=== PATIENT | female | born 1980 | race Caucasian/White ===

== ENCOUNTER 2017-09-05 08:56 | Emergency (ER) | payer BC ==
[2017-09-05 09:16] VITALS: BP 122/65
[2017-09-05] MEDS ORDERED: Al Hydrox/Mg Hydrox/Simet LIQ* 30 ML UDC PO ONE (09:20)
[2017-09-05] MEDS ORDERED: Ondansetron ODT TAB* 4 MG PO ONE (10:11)
--- NOTE | 2017-09-05 10:29 | UC ---
General HPI - HPI Summary HPI Summary: Patient c/o vomiting since yesterday without any apparent triggers, states after several episodes she started having chest pain starting from midline and radiating to right side and arm, worsens when she extends her arm. Denies palpitations, SOB, dizziness. States she suffers from asthma and anxiety and took her medications because she did not understand the reason for the pain and was afraid she had an exacerbation of those. Stools have been normal in color/ consistency - History of Current Complaint Chief Complaint: UCChestPain Stated Complaint: CHEST PAIN, AND VOMITING Time Seen by Provider: 09/05/17 09:03 Hx Obtained From: Patient Hx Last Menstrual Period: start of October Onset/Duration: Sudden Onset, Lasting Hours Onset Severity: Mild Current Severity: Severe Pain Intensity: 7 Pain Location at: sternum Pain Radiates to: right arm Character: shooting/burning Aggravating: extension of arm Associated Signs & Symptoms: Positive: Nausea, Vomiting - Allergy/Home Medications Allergies/Adverse Reactions: Allergies Allergy/AdvReac Type Severity Reaction Status Date / Time diphenhydramine AdvReac Hallucinati Verified 09/05/17 09:17 [From Pedro] ons PMH/Surg Hx/FS Hx/Imm Hx Previously Healthy: Yes Respiratory History: Asthma GI/ History: Gastroesophageal Reflux Psychological History: Anxiety - Surgical History Surgical History: Yes Surgery Procedure, Year, and Place: 2012 L foot, nerve repair. hysterectomy - Social History Alcohol Use: Occasionally Substance Use Type: None Smoking Status (MU): Former Smoker Type: Cigarettes Length of Time of Smoking/Using Tobacco: approx 10 yrs When Did the Patient Quit Smoking/Using Tobacco: 2007 Review of Systems Constitutional: Negative Cardiovascular: Chest Pain Gastrointestinal: Vomiting, Nausea All Other Systems Reviewed And Are Negative: Yes Physical Exam Triage Information Reviewed: Yes Appearance: No Pain Distress, Obese Vital Signs: Initial Vital Signs Temp 98.5 F 09/05/17 08:59 Pulse 82 09/05/17 08:59 Resp 16 09/05/17 08:59 BP 122/65 09/05/17 08:59 Pulse Ox 95 09/05/17 08:59 Vital Signs Reviewed: Yes Eyes: Positive: Conjunctiva Clear ENT: Positive: Hearing grossly normal, Uvula midline, Other - oral mucosa is moist Neck: Positive: Supple, Nontender, No Lymphadenopathy Respiratory: Positive: Chest non-tender, Lungs clear, Normal breath sounds, No respiratory distress, No accessory muscle use Cardiovascular: Positive: RRR, No Murmur, Pulses Normal, Brisk Capillary Refill Abdomen Description: Positive: Nontender, No Organomegaly, Soft, Bruit Bowel Sounds: Positive: Present Musculoskeletal: Positive: Other: - tender on palpation of mid sternum and costochondral area b/l Neurological: Positive: Alert, Muscle Tone Normal Course/Dx - Course Course Of Treatment: start zofran as prescribed, patient refused observation for PO fluid challenge or IV fluids, explained diagnosis to patient, EKG NSR to ST-T changes, no response to Maalox, states she takes Omeprazole daily. F/u with PCP, go to ER if she continues to vomit and oral rehydration is not possible - Differential Dx - Multi-Symptom Provider Diagnoses: Costochondritis. Nausea and vomiting Discharge - Sign-Out/Discharge Documenting (check all that apply): Discharge/Admit/Transfer - Discharge Plan Condition: Stable Disposition: HOME Prescriptions: Ibuprofen TAB* [Motrin TAB* 600 MG] 600 mg PO Q6H PRN #30 tab PRN Reason: Pain Ondansetron ODT TAB* [Zofran 4 MG Odt TAB*] 4 mg PO Q8H PRN #20 tab.odt PRN Reason: Nausea Patient Education Materials: Costochondritis (ED), Acute Nausea and Vomiting ( ED) Forms: *Work Release Referrals: Awilda Colon NP [Primary Care Provider] - - Billing Disposition and Condition Condition: STABLE Disposition: Home
== END 2017-09-05 10:21 | disposition home or self-care (01) ==
LOC: UCEAST 08:56
DX: M94.0 Chondrocostal junction syndrome [Tietze] (principal); R11.2 Nausea with vomiting, unspecified; J45.909 Unspecified asthma, uncomplicated; K21.9 Gastro-esophageal reflux disease without esophagitis; F41.9 Anxiety disorder, unspecified; Z88.8 Allergy status to other drugs, medicaments and biological substances; Z87.891 Personal history of nicotine dependence
CPT/HCPCS: 93005; 99212; A9270-GY; G0463

== ENCOUNTER 2017-12-18 10:27 | Day surgery (SDC) | payer BC ==
[2017-12-18] MEDS ORDERED: Dexamethasone IV* 4 MG/ML 1 ML (4 MG) ONE ×2 (10:42→10:44)
[2017-12-18] MEDS ORDERED: Famotidine IV* 10 MG/ML 2 ML (20 mg) ONE (10:42)
[2017-12-18] MEDS ORDERED: Levalbuterol 0.63MG/3ML NEB* UNIT OF USE INH ONE (10:42)
[2017-12-18] MEDS ORDERED: Naloxone* 0.4 MG/ML 1 ML VIAL IV PRN (11:11)
[2017-12-18] MEDS ORDERED: Ondansetron INJ* 2 MG/ML VIAL IV PRN (11:11)
[2017-12-18] MEDS ORDERED: fentaNYL* 50 MCG/ML 2 ML VIAL (100 MCG VIAL) ONE ×2 (11:13→12:41)
[2017-12-18] MEDS ORDERED: Midazolam* 1 MG/ML 5 ML VIAL (5 MG) ONE (11:13)
[2017-12-18] MEDS ORDERED: Succinylcholine* 20 MG/ML 10 ML VIAL ONE (11:14)
[2017-12-18] MEDS ORDERED: Ondansetron INJ* 2 MG/ML VIAL ONE (11:14)
[2017-12-18] MEDS ORDERED: Propofol* 10 MG/ML 20 ML BTL IV PUSH ONE (11:14)
[2017-12-18] MEDS ORDERED: Lidocaine 2% PF * 5 ML VIAL ONE (11:14)
[2017-12-18 13:35] VITALS: BP 137/71
--- NOTE | 2017-12-19 06:07 | PRO ---
DATE OF PROCEDURE: 12/18/17 PROCEDURE PERFORMED: EGD with CLOtest. INDICATION: Pre-bariatric surgery evaluation. MEDICATIONS GIVEN: Anesthesia directing medications. DESCRIPTION OF PROCEDURE: Full disclosure of risks were reviewed with the patient as detailed on the consent form. The patient was placed in the left lateral decubitus position and monitored with continuous pulse oximetry, interval blood pressure monitoring, and direct observation. A bite-block was placed between the teeth. An Olympus gastroscope was then inserted into the patient's mouth, advanced down the esophagus, into the stomach, and into the distal duodenum. - Esophagus was normal in appearance with a regular Z-line and GE junction at 39 cm. - Gastric mucosa was normal in appearance. A biopsy was obtained and sent for CLOtest to rule out H. pylori. - The duodenum was found to be normal to the third portion. The scope was withdrawn from the patient. She tolerated the procedure well and was returned to the recovery room in stable condition. IMPRESSION: 1. Complete upper endoscopy to the distal duodenum. 2. CLOtest done to rule out Helicobacter pylori. RECOMMENDATIONS: Follow up CLOtest results. [id number]/[facility] #: [id number] [facility]
== END 2017-12-18 13:58 | disposition home or self-care (01) ==
LOC: OR 10:27
PROVIDERS: ATTEND Internal Medicine Gastroenterology
DX: E66.01 Morbid (severe) obesity due to excess calories (principal); J45.909 Unspecified asthma, uncomplicated
CPT/HCPCS: 87077; J0330; J1100; J2250; J2405; J2704; J3010

== ENCOUNTER 2018-04-13 09:21 | Inpatient (IN) | payer BC ==
[~2018-04-13 09:21] MED LIST: Buffered Lidocaine 1% SYRIN* 1 ML/SYRINGE INTRADERM ONE; Dexamethasone IV* 4 MG/ML 1 ML (4 MG) IV SLOW PU ONE; Famotidine IV* 10 MG/ML 2 ML (20 mg) IV ONE; Lactated Ringers 1000 ML Bag* 1,000 ML IV SCH
[2018-04-13] MEDS ORDERED: Heparin VIAL(*) 5000 UNITS/ML VIAL (FIVE THOUSAND) ONE (09:32)
[2018-04-13] MEDS ORDERED: Famotidine IV* 10 MG/ML 2 ML (20 mg) ONE (09:32)
[2018-04-13] MEDS ORDERED: Dexamethasone IV* 4 MG/ML 1 ML (4 MG) ONE (09:32)
[2018-04-13] MEDS ORDERED: CEFAZOLIN IVPB ONE (09:33)
[2018-04-13] MEDS ORDERED: [UNRECOGNIZED DRUG - OTHER] IVPB ONE (09:33)
[2018-04-13] MEDS ORDERED: ceFAZolin 1 GM ADVAN(*) 1 GM ADDV.VIAL IVPB ONE (09:33)
[2018-04-13] MEDS ORDERED: Clindamycin 900 MG/D5W BAG(*) 900 MG/50 ML BAG IVPB ONE (09:33)
[2018-04-13] MEDS ORDERED: fentaNYL* 50 MCG/ML 5 ML VIAL (250 MCG VIAL) ONE (09:36)
[2018-04-13] MEDS ORDERED: Midazolam* 1 MG/ML 2 ML VIAL (2 MG) ONE (09:36)
[2018-04-13] MEDS ORDERED: Atracurium* 10 MG/ML 10 ML VIAL ONE (09:36)
[2018-04-13] MEDS ORDERED: Lidocaine 2% PF * 5 ML VIAL ONE (09:37)
[2018-04-13] MEDS ORDERED: Propofol* 10 MG/ML 20 ML BTL ONE ×2 (09:37→09:49)
[2018-04-13] MEDS ORDERED: Succinylcholine* 20 MG/ML 10 ML VIAL ONE (09:37)
[2018-04-13] MEDS ORDERED: Buffered Lidocaine 1% SYRIN* 1 ML/SYRINGE INTRADERM ONE (10:13)
[2018-04-13] MEDS ORDERED: Bupivacaine 0.25% W/EPI* 10 ML SDV ONE (10:17)
[2018-04-13] MEDS ORDERED: Methylene Blue 0.5 %* 50 MG/10 ML AMP IV ONE (10:18)
[2018-04-13] MEDS ORDERED: HYDROmorphone INJ1* 1 MG/ML SYRINGE IV PRN ×2 (12:31→14:08)
[2018-04-13] MEDS ORDERED: Naloxone* 0.4 MG/ML 1 ML VIAL IV PRN (12:31)
[2018-04-13] MEDS ORDERED: Ketorolac INJ* 30 MG/ML 1 ML VIAL IV PRN ×2 (12:31→13:59)
[2018-04-13] MEDS ORDERED: PROCHLORPERAZINE INJ 5 MG/ML 2 ML VIAL IV PRN (12:31)
[2018-04-13] MEDS ORDERED: DiMENhydriNATE IV* 50 MG/ML VIAL IV PUSH PRN (12:31)
[2018-04-13] MEDS ORDERED: Acetaminophen IV 1GM/100ML * 1,000 MG/100 ML VIAL IVPB ONE (12:31)
[2018-04-13] MEDS ORDERED: Ondansetron INJ* 2 MG/ML VIAL ONE ×2 (13:26→17:47)
[2018-04-13] MEDS ORDERED: Acetaminophen ADULT LIQ* 650 MG/20.3 ML UDC PO PRN (13:59)
[2018-04-13] MEDS ORDERED: DiMENhydriNATE IV* 50 MG/ML VIAL ONE (14:07)
[2018-04-13] MEDS ORDERED: HYDROcodone/ACET. 7.5/325 LIQ* 15 ML UDC PO PRN (14:08)
[2018-04-13] MEDS ORDERED: Ketorolac INJ* 30 MG/ML 1 ML VIAL ONE (14:19)
[2018-04-13] MEDS ORDERED: fentaNYL* 50 MCG/ML 2 ML VIAL (100 MCG VIAL) ONE (14:19)
[2018-04-13] MEDS ORDERED: Acetaminophen IV 1GM/100ML * 100 ML ONE (14:19)
[2018-04-13] MEDS: fentaNYL* 50 MCG/ML 2 ML VIAL (100 MCG VIAL) IV PRN ×2 (14:37→16:06)
[2018-04-13] MEDS ORDERED: Albuterol HFA INHALER* 8 gm MDI INH PRN (14:37)
[2018-04-13] MEDS: Lactated Ringers 1000 ML Bag* 1,000 ML IV SCH (17:10)
[2018-04-13] MEDS: Ondansetron INJ* 2 MG/ML VIAL IV PRN (17:49)
[2018-04-13] MEDS ORDERED: HYDROmorphone INJ1* 1 MG/ML SYRINGE ONE (17:57)
[2018-04-13] MEDS: HYDROmorphone INJ1* 1 MG/ML SYRINGE IV PRN (18:00)
[2018-04-13] MEDS: Famotidine IV* 10 MG/ML 2 ML (20 mg) IV SLOW PU SCH (21:09)
[2018-04-13] MEDS: Heparin VIAL(*) 5000 UNITS/ML VIAL (FIVE THOUSAND) SUBCUT SCH (21:13)
[2018-04-13] MEDS: Mometasone 220 MCG MDI INH SCH (21:15)
[2018-04-14] MEDS: Lactated Ringers 1000 ML Bag* 1,000 ML IV SCH ×2 (01:12→08:04)
--- NOTE | 2018-04-14 01:19 | OP ---
CC: Rubi Hernandez NP * DATE OF OPERATION: 04/13/18 - ROOM #353 DATE OF : 82 SURGEON: Dr. Lopez OPERATIONS AND MAINTENANCE TECHNICIAN: CHARLOTTE Rouse ANESTHESIOLOGIST: Dr. Hussein ANESTHESIA: General endotracheal. PRE-OP DIAGNOSIS: Clinically severe obesity. POST-OP DIAGNOSIS: Clinically severe obesity. OPERATIVE PROCEDURE: Laparoscopic Queenie-en-Y gastric bypass. ESTIMATED BLOOD LOSS: Minimal. IV FLUIDS: Crystalloids. SPECIMEN: None. DRAINS: None. COMPLICATIONS: None. COUNTS: The instrument, needle, and sponge counts were correct. DESCRIPTION OF PROCEDURE: The patient was brought to the operating room and placed on the table supine. Sequential compression devices were placed on both lower extremities and general anesthesia was administered. The abdomen was prepped and draped in the usual sterile fashion. Time-out was performed. Local anesthetic was infiltrated into the skin and soft tissues prior to making each incision. Entry to the abdomen was through a left upper quadrant incision accommodating a 12mm optical trocar. After accessing the peritoneal cavity, carbon dioxide was insufflated to a pressure of 15 mmHg. Under direct visualization, additional 12-mm trocars were placed in the supraumbilical midline and in the right upper quadrant laterally. A 5-mm trocar was placed in the right upper quadrant medially and in the left upper quadrant laterally. A Senthil liver retractor was placed percutaneously in the subxiphoid position and used to elevate the left lobe of the liver. Liver was noted to be normal in appearance without fatty infiltration. The stomach was noted to have normal anatomy. Dissection proceeded taking down the attachments to the left jaxon of the diaphragm using blunt dissection and a LigaSure. After identifying the left jaxon of the diaphragm, dissection proceeded with perigastric dissection on the lesser curvature at the second crossing vein, which was sacrificed. Dissection then allowed entry into the lesser sac and then with the transverse firing of the EndoGIA stapler with stevenson cartridge, the gastric pouch was initiated and pouch was completed by firing towards the angle of His with stevenson cartridges. After inspecting the staple lines and noting them to be intact, the omentum and transverse colon were retracted cephalad. The ligament of Treitz was identified and the jejunum was measured out 50 cm. At this point, the loop of jejunum was sutured to the staple line on the gastric pouch and the gastrojejunal anastomosis was created with the EndoGIA stapler with a 30-mm stevenson cartridge. The common gastroenterotomy was closed over a 34-Vietnamese gastric lavage tube. After completing the closure, the loop of jejunum was divided to the left of the anastomosis, and the anastomosis was tested with methylene blue dye solution instilled through the orogastric tube. No leak was identified. The Queenie limb was then measured out for 75 cm length, and at this point, a functional end-to-side jejunojejunostomy was created with a EndoGIA stapler with a 60-mm stevenson cartridge. The common enterotomy was again run closed with 3- 0 PDS running this to and fro. The mesenteric defect at the jejunojejunostomy was closed with interrupted 3-0 silks using [id number] sutures. After completing the closure, inspection of the 2 anastomoses and of the Queenie limb revealed them to be in proper orientation. Senthil liver retractor and ports were then removed under direct visualization and carbon dioxide was released. The wounds were then closed with 4-0 Monocryl to approximate the skin, and Steri -Strips were applied. The patient tolerated the procedure well, was extubated and transferred to Recovery in stable condition. [id number]/[facility] #: [id number] [facility]
[2018-04-14] MEDS: HYDROmorphone INJ1* 1 MG/ML SYRINGE IV PRN ×3 (01:41→16:26)
[2018-04-14] MEDS: Heparin VIAL(*) 5000 UNITS/ML VIAL (FIVE THOUSAND) SUBCUT SCH ×3 (05:42→21:51)
[2018-04-14] MEDS ORDERED: Albuterol HFA INHALER* 8 gm MDI INH PRN ×2 (07:28→08:00)
[2018-04-14] MEDS: Famotidine IV* 10 MG/ML 2 ML (20 mg) IV SLOW PU SCH ×2 (08:00→21:51)
[2018-04-14] MEDS: Mometasone 220 MCG MDI INH SCH ×2 (08:27→21:53)
[2018-04-14] MEDS ORDERED: Mometasone 110 MCG MDI INH SCH (09:00)
[2018-04-14] MEDS ORDERED: Mometasone 220 MCG MDI INH SCH (09:00)
--- NOTE | 2018-04-14 09:21 | PN ---
Progress Note - Progress Note Date of Service: 04/14/18 SOAP: Subjective:POD#1 s/p lap gastric bypass tolerating clear liqs;minimal pain;walking in halls;no dysuria;one episode of mild nausea last leonel,none since [] Objective: Vital Signs Temp 98.1 F 04/14/18 07:48 Pulse 86 04/14/18 08:00 Resp 16 04/14/18 08:05 BP 104/49 04/14/18 07:48 Pulse Ox 98 04/14/18 08:05 Intake & Output 04/13/18 04/14/18 04/14/18 18:59 06:59 18:59 Intake Total 1300 936 992 Output Total 150 650 0 Balance 1150 286 992 Weight 317 lb Intake: IV Fluids 1300 936 992 LR 1300 936 992 Oral 0 Output: Urine 150 650 0 Other: Estimated Void Small # Bowel Movements 0 Estimated Blood Loss <10 Comment # Voids 1 lungs:clear bilat;heart:RRR,no murmur:abd:+bs,soft;appropriate tenderness around incisions which are intact with dressings,no erythema or drainage;ext: nontender calves [] Assessment:doing well,s/p gastric bypass,POD#1 [] Plan:clear liqs ambulate inspiron []
[2018-04-14] MEDS: Ondansetron INJ* 2 MG/ML VIAL IV PRN (13:05)
--- NOTE | 2018-04-14 13:37 | PN ---
Progress Note - Progress Note Date of Service: 04/14/18 SOAP: Subjective: Post op day #1 S/p Queenie-en-Y gastric bypass. Pt reports 0/10 pain at her surgical sites and no abdominal pain. She does report having an 8/10 headache which began at 0700. She states it has progressively gotten worse throughout the day and is a non radiating band like throbbing headache. She reports past episodes of headaches such as this when she is stressed which typically go away with relaxation. She complains of nausea as well which is made worse with rapid change in position for which she blames her headache. Pt reports trouble sleeping last evening. She is ambulatory stating she had completed "6 laps around the unit" this morning. She is compliant with her incentive spirometer and is tolerating a clears diet well. Pt denies flatus at this time. Denies vomiting, photophobia, phonophobia, dizziness or shortness of breath. Pt states she is "burping alot". Objective: Vital Signs Temp 98.1 F 04/14/18 07:48 Pulse 86 04/14/18 08:00 Resp 16 04/14/18 09:33 BP 104/49 04/14/18 07:48 Pulse Ox 98 04/14/18 08:05 Intake & Output 04/13/18 04/14/18 04/14/18 18:59 06:59 18:59 Intake Total 1300 936 992 Output Total 150 650 0 Balance 1150 286 992 Weight 317 lb Intake: IV Fluids 1300 936 992 LR 1300 936 992 Oral 0 Output: Urine 150 650 0 Other: Estimated Void Small # Bowel Movements 0 Estimated Blood Loss <10 Comment # Voids 1 General: Pt is resting on her hospital bed with her door closed and the lights off. She appears to be in mild distress with a complaint of a headache. HEENT: Pupils are equal, round and reactive to light and accommodation. No photophobia. Heart: Normal S1 and S2 with no mummers, rubs or gallops. Heart beats at regular rate and rhythm. Lungs: No signs of respiratory distress. Lungs are clear to auscultation with no wheezing, rhonchi or crepitus. Abdomen: Abdomen has no signs of ecchymosis. Auscultation reveals hypoactive bowel sounds. Dressings are clean, dry and intact. 1/10 pain around the incision sites. Ext: No signs of lower extremity edema. Assessment: Post Op day 1 S/p Queenie-en-Y gastric bypass Pt complains of 8/10 headache and nausea Plan: Continue with ambulation Continue use of incentive spirometer Continue diet
[2018-04-14] MEDS ORDERED: PROCHLORPERAZINE INJ 5 MG/ML 2 ML VIAL IV PRN (13:43)
[2018-04-14] MEDS: D5W 1/2 NS KCl 20 Meq 1000 ML* 1,000 ML IV SCH (13:59)
[2018-04-15] MEDS: D5W 1/2 NS KCl 20 Meq 1000 ML* 1,000 ML IV SCH (00:28)
[2018-04-15] MEDS: Heparin VIAL(*) 5000 UNITS/ML VIAL (FIVE THOUSAND) SUBCUT SCH (05:50)
[2018-04-15] MEDS: Mometasone 220 MCG MDI INH SCH (08:31)
[2018-04-15 08:40] VITALS: BP 130/61
[2018-04-15] MEDS: Famotidine IV* 10 MG/ML 2 ML (20 mg) IV SLOW PU SCH (08:42)
== END 2018-04-15 09:25 | disposition home or self-care (01) | DRG 403 ==
LOC: AA 09:21 → SSU 17:32
PROVIDERS: ADMIT Surgery; ATTEND Surgery
PROC: 0D164ZA Bypass Stomach to Jejunum, Percutaneous Endoscopic Approach (ICD-10-PCS; principal; 2018-04-13 11:15)
DX: E66.01 Morbid (severe) obesity due to excess calories (principal); R73.03 Prediabetes; J45.909 Unspecified asthma, uncomplicated; Z88.8 Allergy status to other drugs, medicaments and biological substances; Z82.49 Family history of ischemic heart disease and other diseases of the circulatory system; Z80.9 Family history of malignant neoplasm, unspecified; Z82.61 Family history of arthritis; Z72.89 Other problems related to lifestyle; Z68.43 Body mass index [BMI] 50.0-59.9, adult; R51 Headache; R11.0 Nausea
CPT/HCPCS: 43644; 94640; A9270-GY; C1776; J0330; J0690; J0780; J1100; J1170; J1240; J1644; J1885; J2250; J2405; J2704; J3010

== ENCOUNTER 2019-02-12 20:03 | Emergency (ER) | payer BC ==
[2019-02-12 20:10] VITALS: BP 142/60
--- NOTE | 2019-02-12 20:22 | UC ---
Complaint Female HPI - HPI Summary HPI Summary: 38 yo woman, almost one year post bariatric surgery with about 100 pounds of weight loss, with 3 week hx of progressive right flank pain, worse with movement ,and not relieved by ibuprofen 1200mg which she took x 1 today. Pain worse over the course of today. Pain begins in the low thoracic area and radiates down the right paraspinal area. Pain worsened today with the lifting which she does during her work at [employer], although she does not report a previous work injury. She has a hx of interstitial cystitis, no longer on treatment for this; managed in the past by Dr. Seay. Reviewed labs: normal renal function 10/2018. No hx of gout. She reports off and on dysuria, but no pain with voiding. NO hx of renal stones. Past hysterectomy. - History Of Current Complaint Chief Complaint: UCBackPain Stated Complaint: SIDE PAIN Time Seen by Provider: 02/12/19 20:11 Hx Obtained From: Patient Hx Last Menstrual Period: start of October Onset/Duration: Gradual Onset, Lasting Weeks Timing: Constant, Lasting Days Severity Initially: Moderate Severity Currently: Moderate Pain Intensity: 10 Character: Sharp Aggravating Factor(s): Movement, Coughing, Urination - sometimes Alleviating Factor(s): Position Associated Signs And Symptoms: Positive: Back Pain. Negative: Fever - Risk Factors Ectopic Risk Factor: Negative - Allergies/Home Medications Allergies/Adverse Reactions: Allergies Allergy/AdvReac Type Severity Reaction Status Date / Time nitrofurantoin Allergy Headache Verified 02/12/19 20:10 [From Macrodantin] diphenhydramine AdvReac Hallucinati Verified 02/12/19 20:10 [From Benadryl] ons Home Medications: Home Medications Ibuprofen TAB* [Advil TAB*] 1,200 mg PO ONCE PRN 02/12/19 [History Confirmed ] PMH/Surg Hx/FS Hx/Imm Hx Endocrine History: Other - hx of pre-diabetes, last a1c was 5.7 earlier this year. - Surgical History Surgical History: Yes Surgery Procedure, Year, and Place: 2012 L foot, nerve repair. hysterectomy. gastric bypass 2018 - Family History Known Family History: Positive: Other - lung cancer in grandfather, prostate in father, ovarian - Social History Occupation: Employed Full-time Lives: With Family Alcohol Use: None Substance Use Type: None Smoking Status (MU): Former Smoker Type: Cigarettes Amount Used/How Often: UNKNOWN Length of Time of Smoking/Using Tobacco: approx 10 yrs Have You Smoked in the Last Year: No When Did the Patient Quit Smoking/Using Tobacco: 2007 - Immunization History Most Recent Influenza Vaccination: NONE Most Recent Pneumonia Vaccination: NONE Review of Systems All Other Systems Reviewed And Are Negative: Yes Constitutional: Positive: Chills, Fatigue Skin: Positive: Negative Eyes: Positive: Negative ENT: Positive: Negative Respiratory: Positive: Negative Cardiovascular: Positive: Negative Gastrointestinal: Positive: Negative Genitourinary: Positive: Dysuria - mild, Hematuria - seen on micro today., Other - past hysterectomy for abnormal bleeding. Motor: Positive: Decreased ROM Neurovascular: Positive: Negative Musculoskeletal: Positive: Decreased ROM, Myalgia Neurological: Positive: Negative Psychological: Positive: Negative Physical Exam Triage Information Reviewed: Yes Appearance: Well-Appearing, Pain Distress - moderate, with movement, antalgic gait, Obese Vital Signs: Initial Vital Signs Temp 97.1 F 02/12/19 20:06 Pulse 79 02/12/19 20:06 Resp 16 02/12/19 20:06 BP 142/60 02/12/19 20:06 Pulse Ox 99 02/12/19 20:06 Eye Exam: Normal ENT: Positive: Normal ENT inspection Neck: Positive: Supple, Nontender, No Lymphadenopathy Respiratory: Positive: Lungs clear, Normal breath sounds Cardiovascular: Positive: RRR, No Murmur Abdomen Description: Positive: Nontender, No Organomegaly, Soft, CVA Tenderness (R) - mild percussive tenderness, but also has associated tenderness higher in the thoracic spine and below the CV angle area. Musculoskeletal: Positive: Strength Intact, ROM Limited @ - FF limited to 45 degrees, pain with returning to neutral position, and pain with extension. Posture is forward flexed and stiff. Tender paraspinal muscles. Neurological: Positive: Alert Psychological Exam: Other - anxious Skin Exam: Normal Diagnostics - Laboratory Lab Results: UA with trace rbc and esterace. Complaint Female Dx - Course Course Of Treatment: Pain pattern and finidings suggest msk source of pain. Given hx of interstitial cystitis, might have chronic hematuria, although she is not certain this was found in the past. She has had previous cystoscopy. Suggested culture of urine but holding on treatment until culture shows growth, and treating as msk pain. If pain does not improve, she is aware that she will need imaging and would best be served in the emergency room. - Differential Dx/Diagnosis Differential Diagnosis/HQI/PQRI: Renal Colic, Urinary Tract Infection, Other - muscle strain. Provider Diagnosis: Strain of back Discharge ED - Sign-Out/Discharge Documenting (check all that apply): Patient Departure All imaging exams completed and their final reports reviewed: No Studies - Discharge Plan Condition: Stable Disposition: HOME Prescriptions: Cyclobenzaprine TAB* [Flexeril 10 MG TAB*] 10 mg PO BID PRN #10 tab PRN Reason: Spasms - Back Patient Education Materials: Muscle Strain (ED) Forms: *Work Release Referrals: Rubi Hernandez NP [Primary Care Provider] - Additional Instructions: Your pain is more consistent with a muscle strain that a urinary tract infection or a kidney stones. Use cyclobenzaprine (flexeril) as a muscle relaxant; this will cause sedation. Rest at home tomorrow and use muscle relaxants and ibuprofen 600mg up to 4 times per day. If pain worsens or persists, please go the emergency room for evaluation. If a urinary infection is identified, you will be called to start an appropriate antibiotic. - Billing Disposition and Condition Condition: STABLE Disposition: Home
[2019-02-12] MEDS ORDERED: Cyclobenzaprine TAB* 10 MG PO ONE (20:44)
== END 2019-02-12 21:02 | disposition home or self-care (01) ==
LOC: UCEAST 20:03
DX: S29.012A Strain of muscle and tendon of back wall of thorax, initial encounter (principal); R31.9 Hematuria, unspecified; R30.0 Dysuria; R53.83 Other fatigue; E66.9 Obesity, unspecified; Z90.710 Acquired absence of both cervix and uterus; Z88.1 Allergy status to other antibiotic agents; Z88.8 Allergy status to other drugs, medicaments and biological substances; Z98.84 Bariatric surgery status; Z87.891 Personal history of nicotine dependence; X58.XXXA Exposure to other specified factors, initial encounter; Y92.9 Unspecified place or not applicable
CPT/HCPCS: 81003; 87086; 99212; A9270-GY; G0463